=== PATIENT | female | born 1955 | race Caucasian/White ===

== ENCOUNTER 2017-02-16 10:12 | Day surgery (SDC) | payer OTHER ==
[~2017-02-16] VITALS: Ht 152.4 cm; Wt 53.5 kg
[~2017-02-16 10:12] MED LIST: ATIVAN0.5 MG PO; CALTRATE 600 +1 EAC1 PO; GABAPENTIN800 MG PO; IMITREX50 MG PO; LEXAPRO20 MG PO; NEURONTIN600 MG PO; OXYCODONE-ACET1 EACH PO
== END 2017-02-16 12:05 | disposition home or self-care (01) ==
LOC: PAIN 10:12 → SDC 10:45 → PAIN 10:45
PROC: 3E0T3BZ Introduction of Anesthetic Agent into Peripheral Nerves and Plexi, Percutaneous Approach (ICD-10-PCS; principal; 2017-02-16)
PROC: 3E0T33Z Introduction of Anti-inflammatory into Peripheral Nerves and Plexi, Percutaneous Approach (ICD-10-PCS; 2017-02-16)
PROC: 3E0T3TZ Introduction of Destructive Agent into Peripheral Nerves and Plexi, Percutaneous Approach (ICD-10-PCS; 2017-02-16)
DX: M47.816 Spondylosis without myelopathy or radiculopathy, lumbar region (principal); M53.3 Sacrococcygeal disorders, not elsewhere classified; M54.6 Pain in thoracic spine; I95.9 Hypotension, unspecified; M47.812 Spondylosis without myelopathy or radiculopathy, cervical region; Z79.891 Long term (current) use of opiate analgesic; F17.210 Nicotine dependence, cigarettes, uncomplicated
CPT/HCPCS: J1030; J2250; J3010; S0020

== ENCOUNTER 2017-02-23 09:12 | Day surgery (SDC) | payer OTHER ==
[~2017-02-23] VITALS: Ht 152.4 cm; Wt 53.5 kg
== END 2017-02-23 10:40 | disposition home or self-care (01) ==
LOC: PAIN 09:12 → SDC 10:45
DX: M47.816 Spondylosis without myelopathy or radiculopathy, lumbar region (principal); M51.16 Intervertebral disc disorders with radiculopathy, lumbar region; M48.54XS Collapsed vertebra, not elsewhere classified, thoracic region, sequela of fracture; M47.812 Spondylosis without myelopathy or radiculopathy, cervical region; M54.81 Occipital neuralgia; M41.9 Scoliosis, unspecified; M53.3 Sacrococcygeal disorders, not elsewhere classified; F17.210 Nicotine dependence, cigarettes, uncomplicated; Z79.891 Long term (current) use of opiate analgesic; Z86.14 Personal history of Methicillin resistant Staphylococcus aureus infection
CPT/HCPCS: J1030; J2250; J3010; S0020

== ENCOUNTER 2017-11-07 12:23 | Day surgery (SDC) | payer OTHER ==
[~2017-11-07] VITALS: Ht 152.4 cm; Wt 50.0 kg
== END 2017-11-07 14:30 | disposition home or self-care (01) ==
LOC: PAIN 12:23
PROC: 3E0R3BZ Introduction of Anesthetic Agent into Spinal Canal, Percutaneous Approach (ICD-10-PCS; principal; 2017-11-07)
PROC: 3E0R33Z Introduction of Anti-inflammatory into Spinal Canal, Percutaneous Approach (ICD-10-PCS; principal; 2017-11-07)
PROC: B01B1ZZ Fluoroscopy of Spinal Cord using Low Osmolar Contrast (ICD-10-PCS; principal; 2017-11-07)
DX: M54.14 Radiculopathy, thoracic region (principal); M48.54XD Collapsed vertebra, not elsewhere classified, thoracic region, subsequent encounter for fracture with routine healing; M47.812 Spondylosis without myelopathy or radiculopathy, cervical region; M47.816 Spondylosis without myelopathy or radiculopathy, lumbar region; M41.9 Scoliosis, unspecified; E78.5 Hyperlipidemia, unspecified; F41.9 Anxiety disorder, unspecified; Z79.891 Long term (current) use of opiate analgesic; F17.200 Nicotine dependence, unspecified, uncomplicated
CPT/HCPCS: J1100; J2250; J3010